=== PATIENT | male | born 1985 ===

== ENCOUNTER 2022-09-17 20:28 | Emergency (ER) | payer BC, SELFPAY ==
[2022-09-17 20:45] VITALS: BP 147/108; PULSE 65; RESP 18; TEMP 36.9; O2SAT 95
--- NOTE | 2022-09-17 21:12 | ED.DENTAL ---
HPI - Dental/Oral General Chief complaint: Dental/Oral/Mouth Injury/Pain Stated complaint: Cracked a tooth, possible infection Time Seen by Provider: 09/17/22 20:30 History of Present Illness HPI Narrative: Pt is a 37 year old gentleman who broke his lower molar on the left earlier tonight. Pt presents with severe pain as well as swelling of the left side of his jaw. No fevers or chills. No nausea or vomiting. Pt is currently being treated with prednisone for a uri and states that he is feeling better. Pt is not sure of his tetanus status. Pt has been taking otc pain medications with minimal relief. Pt is scheduled to see his dentist in the next few days. Related Data Previous Rx's Medication Instructions Recorded prednisone 20 mg tablet 40 mg PO QDAY 5 days #10 tabs 09/16/22 Allergies Allergy/AdvReac Type Severity Reaction Status Date / Time No Known Drug Allergies Allergy Verified 04/19/22 16:54 Review of Systems Status of ROS: Reports: 10 or more systems reviewed and unremarkable except as noted in History and below [facility] Social History Do you use any of these nicotine containing products: Vaping Products How often do you have a drink containing alcohol: never AUDIT-C Alcohol total score: 0 Non-prescribed substance use: denies use service: No Exam Narrative: Exam Narrative: EXAM GENERAL: Patient appears comfortable and well. Poor dentition noted with an enamel defect in the bottom molar on the left. EYES: No scleral icterus. ENT: Tympanic membranes and oropharynx normal. THYROID: no thyroid nodules or thyromegaly. LYMPH: No supraclavicular or cervical lymphadenopathy. SKIN: Visible skin seen during exam normal or with benign process only. EXT: No dependent lower extremity pedal edema. HEART: Regular rate and rhythm with no murmurs, rubs, or gallops. LUNGS: Clear to auscultation bilaterally with no crackles or wheezes. ABD: Soft, non tender, non distended. PSYCH: Good eye contact, speech is not pressured. Const: Vital Signs, click to edit/add: Vital Signs - 24 hr 09/17/22 20:45 Temperature 98.5 F Pulse Rate [Left P ulse Oximeter] 65 Respiratory Rate 18 Blood Pressure [Ri ght Upper Arm] 147/108 H Pulse Oximetry 95 Oxygen Delivery Me thod Room Air Course Course Hospital Course: Pt seen and examined. Vital Signs Vital signs: Initial Vital Signs Temperature 98.5 F 09/17/22 20:45 Temperature Source Temporal Artery Scan 09/17/22 20:45 Pulse Rate 65 09/17/22 20:45 Pulse Rhythm 09/17/22 20:45 Respiratory Rate 18 09/17/22 20:45 Blood Pressure 147/108 H 09/17/22 20:45 Blood Pressure Mean 121 09/17/22 20:45 Blood Pressure Position Semi-Fowlers 09/17/22 20:45 Pulse Oximetry 95 09/17/22 20:45 Oxygen Delivery Method 09/17/22 20:45 Vital Signs Temperature 98.5 F 09/17/22 20:45 Pulse Rate 65 09/17/22 20:45 Respiratory Rate 18 09/17/22 20:45 Blood Pressure 147/108 H 09/17/22 20:45 Pulse Oximetry 95 09/17/22 20:45 Oxygen Delivery Method 09/17/22 20:45 Temperature 98.5 F 09/17/22 20:45 Pulse Rate 65 09/17/22 20:45 Respiratory Rate 18 09/17/22 20:45 Blood Pressure 147/108 H 09/17/22 20:45 Pulse Oximetry 95 09/17/22 20:45 Oxygen Delivery Method 09/17/22 20:45 MDM - Dental/Oral MDM Narrative Medical decision making narrative: Pt is a reasonably healthy 37 year old gentleman who presents with a toothache. Pt has no other complaints or findings on exam and vitals are reasonably normal. Pt will be treated with Amoxicillin for the next 7 days with dental follow up. Tdap verified prior to discharge. Differential Diagnosis Differential diagnosis: Likely gingival abscess, dental caries, toothache, dental abscess, fracture of tooth and aphthous ulcer Discharge Plan Discharge Clinical Impression: Dental caries Patient Disposition: Home, Self-Care Condition: Stable Instructions: Toothache (ED) Activity Level: No Restrictions Discharge Diet: Regular Prescriptions: No Action prednisone 20 mg tablet 40 mg PO QDAY 5 Days Qty: 10 0RF Follow Up/Referrals: Provider,Not a Local [Primary Care Provider] - Stand Alone Forms: [employer] Info Instructions
== END 2022-09-17 21:48 | disposition home or self-care (01) ==
LOC: ED 21:29
PROVIDERS: Emergency Provider Internal Medicine
DX: K02.9 Dental caries, unspecified (principal)
CPT/HCPCS: 99283

== ENCOUNTER 2023-02-16 09:59 | Emergency (ER) | payer BC, SELFPAY ==
[2023-02-16 10:08] VITALS: BP 127/89; PULSE 81; RESP 16; TEMP 36.7; O2SAT 96; BMI 30.1
--- NOTE | 2023-02-16 10:23 | ED.GENADULT ---
HPI - General Adult General Chief complaint: Dental/Oral/Mouth Injury/Pain Stated complaint: L side tooth ache Time Seen by Provider: 02/16/23 10:16 History of Present Illness HPI narrative: Patient is a 37-year-old male who presents with left lower molar pain, hurts to chew her bike down, Tylenol Advil been unsuccessful. He has got a dental appointment but is not tele 11th. Related Data Home Medications Medication Instructions Recorded Confirmed No Known Home Medications 02/16/23 02/16/23 Allergies Allergy/AdvReac Type Severity Reaction Status Date / Time No Known Drug Allergies Allergy Verified 02/16/23 10:13 Review of Systems Status of ROS: Reports: 6 or more systems reviewed and unremarkable except as noted in History and below PFSH PFS Social History Do you use any of these nicotine containing products: E-Cigarettes and Vaping Products How often do you have a drink containing alcohol: never How often do you have six or more drinks on one occasion: Never AUDIT-C Alcohol total score: 0 Non-prescribed substance use: denies use service: No Exam Narrative: Exam Narrative: Objective vital signs unremarkable In general no apparent distress Left lower molar shows a reddened area at the base of the tooth consistent with cellulitic change or infection. Rest of mouth is clear Const: Vital Signs, click to edit/add: Vital Signs - 24 hr 02/16/23 10:08 Temperature 98.0 F Pulse Rate [Right Pulse Oximeter] 81 Respiratory Rate 16 Blood Pressure [Ri ght Upper Arm] 127/89 Pulse Oximetry 96 Oxygen Delivery Me thod Room Air Course Vital Signs Vital signs: Initial Vital Signs Temperature 98.0 F 02/16/23 10:08 Temperature Source Temporal Artery Scan 02/16/23 10:08 Pulse Rate 81 02/16/23 10:08 Respiratory Rate 16 02/16/23 10:08 Blood Pressure 127/89 02/16/23 10:08 Blood Pressure Mean 101 02/16/23 10:08 Blood Pressure Position Sitting 02/16/23 10:08 Pulse Oximetry 96 02/16/23 10:08 Oxygen Delivery Method Room Air 02/16/23 10:08 Vital Signs Temperature 98.0 F 02/16/23 10:08 Pulse Rate 81 02/16/23 10:08 Respiratory Rate 16 02/16/23 10:08 Blood Pressure 127/89 02/16/23 10:08 Pulse Oximetry 96 02/16/23 10:08 Oxygen Delivery Method Room Air 02/16/23 10:08 Temperature 98.0 F 02/16/23 10:08 Pulse Rate 81 02/16/23 10:08 Respiratory Rate 16 02/16/23 10:08 Blood Pressure 127/89 02/16/23 10:08 Pulse Oximetry 96 02/16/23 10:08 Oxygen Delivery Method Room Air 02/16/23 10:08 Medical Decision Making MDM Narrative Medical decision making narrative: Left lower molar infection, will treat with Keflex 500 q.i.d. times 10 days, Toradol as needed for discomfort, dental appointment as planned. Discharge Plan Discharge Clinical Impression: Dental abscess Patient Disposition: Home, Self-Care Condition: Stable Instructions: Dental Abscess (ED) Additional Instructions: Dental appointment as planned, use the medications as prescribed, do not use any additional Advil or Aleve with the medication your given, you may use additional Tylenol. Return as problems or concerns occur. Medications per dispensed out of in stay med Activity Level: No Restrictions Discharge Diet: Regular Prescriptions: No Action No Known Home Medications Follow Up/Referrals: Provider,Not a Local [Primary Care Provider] - Stand Alone Forms: [employer] Info Instructions
[2023-02-16] MEDS: KETOROLAC 10 MG TABLET PO (10:33)
[2023-02-16] MEDS: cephALEXin 500 MG CAPSULE PO (10:33)
== END 2023-02-16 10:47 | disposition home or self-care (01) ==
LOC: ED 10:26
PROVIDERS: Emergency Provider Family Medicine
DX: K04.7 Periapical abscess without sinus (principal)
CPT/HCPCS: 99282; 99283; A9270